=== PATIENT | male | born 1950 | race Caucasian/White ===

== ENCOUNTER 2017-12-21 06:27 | Day surgery (SDC) | payer OTHER ==
[~2017-12-21] VITALS: Ht 180.3 cm; Wt 94.0 kg
[~2017-12-21 06:27] MED LIST: ADULT LOW DOSE81 M1; COLCHICINE0.6 M1 PO; COREG CR10 MG PO; CRESTOR5 MG PO; DIOVAN40 MG PO; NORCO 5/3251 TABLET PO; PLAVIX75 MG PO; PROTONIX40 MG PO
[2017-12-21 13:52] VITALS: BP 138/74
[2017-12-21 14:54] VITALS: BP 122/79
[2017-12-21 19:57] VITALS: BP 128/68
[2017-12-21 23:39] VITALS: BP 133/60
[2017-12-22 04:16] VITALS: BP 139/67
[2017-12-22 05:36] LABS: BASOPHIL (%) 0.5 % (0-1); EOSINOPHIL (%) 4.2 % (0-5); EOSINOPHIL COUNT 0.3 K/uL (0-0.3); HEMATOCRIT 41.4 % (38.0-50.0); IMMATURE GRANULOCYTE (%) 0.3 % (0.0-0.7); LYMPHOCYTE (%) 22.3 % (15-42); LYMPHOCYTE COUNT 1.8 K/uL (1.0-2.8); MCH 32.3 PG (29.0-34.0); MCHC 34.3 G/DL (30.0-36.0); MCV 94.1 FL (86-99); MONOCYTE COUNT 0.7 K/uL (0-0.8); NEUTROPHIL (%) 63.7 % (45-76); NEUTROPHIL COUNT 5.1 K/uL (1.8-6.4); PLATELET COUNT 191 K/uL (156-360); RBC DIS.WIDTH-CV 12.5 % (11.8-14.6); RBC DIS.WIDTH-SD 43.7 % (39-53); WHITE BLOOD COUNT 7.9 K/uL (4.1-10.2)
[2017-12-22 05:45] LABS: HEMOGLOBIN 14.2 G/DL (12.5-16.6)
[2017-12-22 06:03] LABS: CHLORIDE 108 MEQ/L (99-109); GFR ESTIMATE (CALCULATED) > 59 mL/min/ (58.99-99999); GLUCOSE 99 mg/dL (70-99); POTASSIUM 3.8 MEQ/L (3.7-5.4); SODIUM 141 MEQ/L (136-147); UREA NITROGEN (BUN) 14 mg/dL (9-23)
[2017-12-22 06:40] VITALS: BP 133/74
== END 2017-12-22 10:17 | disposition home or self-care (01) ==
LOC: CATH 06:27 → 2SOUTH 10:40 → 4EAST 10:40 → 2SOUTH 10:40 → ENRESERV 11:03 → 4EAST 13:45
PROVIDERS: Internal Medicine Cardiovascular Disease
DX: I25.119 Atherosclerotic heart disease of native coronary artery with unspecified angina pectoris (principal); I25.84 Coronary atherosclerosis due to calcified coronary lesion; T82.858A Stenosis of other vascular prosthetic devices, implants and grafts, initial encounter; I71.2 Thoracic aortic aneurysm, without rupture; I10 Essential (primary) hypertension; E78.5 Hyperlipidemia, unspecified; Z79.02 Long term (current) use of antithrombotics/antiplatelets
CPT/HCPCS: 80048; 85025; 85347; 93005; C1725; C1769; C1874; C1887; G0378; J1200; J1644; J2250; J7030